=== PATIENT | female | born 1960 | race Caucasian/White ===

== ENCOUNTER 2024-04-13 09:03 | Emergency (ER) | payer MEDICAID, SELFPAY ==
[2024-04-13 09:15] VITALS: BP 145/92; PULSE 78; RESP 18; TEMP 36.9; O2SAT 97; BMI 54.1
--- NOTE | 2024-04-13 09:17 | XR_ITS ---
Examination: Duplex scan of the lower extremity, unilateral left Date and time of exam: April 13, 2024 0927 hours INDICATIONS: Left lower leg redness swelling and pain beginning 3 days ago Technique: Duplex scan of the extremity veins using B-mode/grayscale imaging and Doppler spectral analysis and color flow Attention is directed to internal echogenicity, compression and augmentation involving these veins, color flow assessment, spectral analysis Findings: Major deep venous structures in the extremity demonstrate normal course and caliber. There is no evidence of deep vein thrombosis. Normal color flow and spectral analysis Impression: Negative for DVT..
--- NOTE | 2024-04-13 09:19 | PD.EDLOWEX ---
Lower Extremity Injury RME/HPI General Chief Complaint: Extremity Injury, Lower Stated Complaint: Left leg redness, swelling Time Seen by Provider: 04/13/24 09:17 Source: patient Arrival date/time: 04/13/24 09:03 63-year-old female with a history of type 2 diabetes, hypertension, neuropathy, presents to the emergency room with a chief complaint of left leg and calf redness, swelling, and tenderness x 2 days Mode of arrival: ambulatory Limitations: no limitations Related Data Home Medications ?Medication ?Instructions ?Recorded ?Confirmed atenolol 50 mg tablet (Tenormin) 50 mg PO QAM #0 tabs 06/18/13 potassium chloride 8 mEq 8 meq PO AM ##0 06/18/13 capsule,extended release amlodipine 10 mg tablet (Norvasc) 10 mg PO NOON #0 tabs 08/20/13 furosemide 40 mg tablet 40 mg PO QAM ##0 08/20/13 gabapentin 300 mg capsule 300 mg PO BID #0 caps 08/20/13 lisinopril 20 mg tablet 20 mg PO HS #0 tabs 08/20/13 Cyclobenzaprine * (FLEXERIL *) 10 mg PO HS PRN PAIN #0 tabs 06/24/14 albuterol sulfate 2.5 mg/3 mL 2.5 mg HHN QDAY #0 ea 06/24/14 (0.083 %) solution for nebulization albuterol sulfate 90 mcg/actuation 2 puff inhalation BID ##0 06/24/14 aerosol inhaler (ProAir HFA) beclomethasone dipropionate 40 1 puff inhalation QDAY ##0 06/24/14 mcg/actuation aerosol inhaler (Qvar) glyburide 5 mg tablet 5 mg PO BIDAC #0 tabs 06/24/14 ibuprofen 800 mg tablet 800 mg PO Q8HR PRN PAIN #0 tabs 06/24/14 pregabalin 50 mg capsule (Lyrica) 50 mg PO NOON #0 caps 06/24/14 Venlafaxine * (EFFEXOR *) 37.5 mg PO QAMAC #0 tabs 12/10/14 gemfibrozil 600 mg tablet (Lopid) 600 mg PO BIDWM #0 tabs 12/10/14 sitagliptin phosphate 100 mg 100 mg PO HS #0 tabs 12/10/14 tablet (Januvia) Previous Rx's ?Medication ?Instructions ?Recorded azithromycin 250 mg tablet See Rx Instructions PO .COMPLEX #6 10/20/23 (Zithromax Z-Praneeth) tabs cephalexin 500 mg capsule 500 mg PO TID #21 caps 11/17/23 insulin glargine 100 unit/mL (3 55 unit (0.55 mL) subcut QAM #15 mL 11/17/23 mL) subcutaneous pen (Basaglar KwikPen U-100 Insulin) cephalexin 500 mg capsule 500 mg PO BID 7 days #14 caps 04/13/24 Allergies Allergy/AdvReac Type Severity Reaction Status Date / Time codeine Allergy Mild Rash Unverified 10/20/23 14:41 oxycodone Allergy Mild Rash Unverified 10/20/23 14:41 sulfamethoxazole (From Allergy Verified 04/13/24 09:09 Bactrim) trimethoprim (From Bactrim) Allergy Verified 04/13/24 09:09 Review of Systems Review of Systems Systems Reviewed: All systems reviewed, normal except as documented Constitutional Constitutional: Reports system reviewed and no additional complaints, except as documented, Denies fatigue, Denies fever(s), Denies headache(s) and Denies weakness Eyes Eyes: Reports system reviewed and no additional complaints, except as documented, Denies blurry vision and Denies change in vision ENT Ears, Nose, Mouth, and Throat: Reports system reviewed and no additional complaints, except as documented, Denies otalgia, Denies headache(s), Denies nasal congestion, Denies throat swelling and Denies vertigo Cardiovascular Cardiovascular: Reports system reviewed and no additional complaints, except as documented, Denies chest pain, Denies dyspnea and Denies dyspnea on exertion Respiratory Respiratory: Reports system reviewed and no additional complaints, except as documented, Denies chest congestion, Denies cough, Denies dyspnea, Denies dyspnea on exertion and Denies wheezing Gastrointestinal Gastrointestinal: Reports system reviewed and no additional complaints, except as documented, Denies abdominal pain, Denies cramping, Denies nausea and Denies vomiting Genitourinary Genitourinary: Reports system reviewed and no additional complaints, except as documented Musculoskeletal Musculoskeletal: Reports system reviewed and no additional complaints, except as documented and Denies back pain Integumentary/Breasts Skin/Breast: Reports system reviewed and no additional complaints, except as documented, Reports dry skin, Reports erythema, Reports pruritus and Denies wounds Neurologic Neurologic: Reports system reviewed and no additional complaints, except as documented, Denies confusion, Denies headache(s), Denies lack of coordination, Denies vertigo and Denies weakness Psychiatric Psychiatric: Reports system reviewed and no additional complaints, except as documented, Denies anxiety, Denies confusion, Denies depression, Denies paranoia, Denies suicidal ideation and Denies tactile hallucinations Endocrine Endocrine: Reports system reviewed and no additional complaints, except as documented and Denies fatigue Hematologic/Lymphatic Hematologic/Lymphatic: Reports system reviewed and no additional complaints, except as documented and Denies lymphadenopathy Allergic/Immunologic Allergic/Immunologic: Reports system reviewed and no additional complaints, except as documented, Denies throat swelling, Denies urticaria and Denies wheezing ED Exam General Limitations: Present no limitations General appearance: Present alert and in no apparent distress Head Head exam: Present atraumatic Eye Eye exam: Present normal appearance, PERRL and EOMI ENT ENT exam: Present normal exam, normal oropharynx and mucous membranes moist Neck Neck exam: Present normal inspection, full ROM and trachea midline Chest Chest inspection: Present normal inspection and symmetric chest wall rise Respiratory Respiratory exam: Present normal lung sounds bilaterally Cardiovascular Cardiovascular exam: Present regular rate, normal rhythm and normal heart sounds Abdominal Exam Abdominal exam: Present soft and normal bowel sounds Extremities Exam Extremities exam: Present normal inspection and full ROM Expanded Lower Extremity Exam Hip/Pelvis exam: Present normal inspection Upper leg exam: Present normal inspection Knee exam: Present normal inspection Lower leg exam: Present full ROM, tenderness, swelling, erythema and Homans' sign Foot/toe exam: Present normal inspection Neurovascular/Tendon exam: Present normal capillary refill and pallor Gait: observed and limited by pain Back Exam Back exam: Present normal inspection and full ROM Neurological Exam Neurological exam: Present alert, oriented X3 and CN II-XII intact Psychiatric Psychiatric exam: Present normal affect and normal mood Skin Skin exam: Present warm, dry, intact and normal color Course Quality Measures none Orders Category Date Time Status US venous doppler LE LT Stat Exams 04/13/24 09:17 Completed CBC [CBC] Stat Lab 04/13/24 09:55 Completed CMP [Comprehensive Metabolic Panel] Stat Lab 04/13/24 09:55 Completed Vital Signs Vital signs: Vital Signs Temperature 98.5 F 04/13/24 09:15 Pulse Rate 78 04/13/24 09:15 Respiratory Rate 18 04/13/24 09:15 Blood Pressure 145/92 H 04/13/24 09:15 Pulse Oximetry (%) 97 04/13/24 09:15 Oxygen Delivery Method Room Air 04/13/24 09:15 O2 saturation 97% within normal limits Extremity Injury, Lower MDM Narrative MDM Narrative:: 63-year-old female with a history of type 2 diabetes, hypertension, neuropathy, presents to the emergency room with a chief complaint of left leg and calf redness, swelling, and tenderness x 2 days The patient is hemodynamically stable and in no apparent distress. Physical examination shows swelling, tenderness, and erythema to the left lower extremity. The patient has a positive Homans' sign and states it is very tender to the touch. There is no drainage, eschar, and the findings are consistent with uncomplicated cellulitis. Ultrasound Doppler was completed and was negative for any DVT Antibiotics are sent to the patient's pharmacy patient was discharged and educated to follow-up with primary care provider and return to the emergency room for any evidence of worsening signs or symptoms Patient data External records reviewed:: [facility] previous records Clinical information provided by:: patient Social determinants that could affect healthcare access:: none Patient has the following chronic illnesses:: Type 2 diabetes, obesity, hyperlipidemia, hyperglycemia How is presenting disease/condition affected by chronic disease/condition?: exacerbated by Evaluation data The following diagnostics were reviewed and interpreted by me:: lab results and radiology exam(s) Lab and/or radiology exams considered but not ordered:: Labs and radiology exams considered and ordered Interpretation Summary: Ultrasound Doppler of the left lower extremity-Findings: Major deep venous structures in the extremity demonstrate normal course and caliber. There is no evidence of deep vein thrombosis. Normal color flow and spectral analysis Impression: Negative for DVT.. Medications / Prescriptions Medications or Prescriptions considered but not ordered:: Rx given Medication administrations:: Rx given Consultations Consultation(s) initiated? (list below): No Diagnosis Extremity Injury, Lower Differential Diagnosis: other (DVT/cellulitis) Most likely diagnosis given after review of the tests above:: Cellulitis Admission Indicated Admission indicated?: not indicated Admission Request Was there a request for admission?: No Disposition Plan Disposition Plan: Discharge Discharge Attestation Discharge Attestation: The patient and all family members were given an opportunity to ask questions and understood the discharge instructions. Discharge instructions specifically effects, indications for sooner follow up or return to the emergency department, and the expected course of current diagnosis. Patient condition: Stable Discharge Plan Plan Patient Disposition: HOME (Self Care) Disposition Comment: Stable Prescriptions/Referrals Prescriptions/Med Rec: New cephalexin 500 mg capsule 500 mg PO BID 7 Days Qty: 14 0RF No Action potassium chloride 8 MEQ capsule, extended release 8 meq PO AM Qty: 0 atenolol [Tenormin] 50 MG tablet 50 mg PO QAM Qty: 0 furosemide 40 MG tablet 40 mg PO QAM Qty: 0 lisinopril 20 MG tablet 20 mg PO HS Qty: 0 amlodipine [Norvasc] 10 MG tablet 10 mg PO NOON Qty: 0 gabapentin 300 MG capsule 300 mg PO BID Qty: 0 albuterol sulfate 2.5 MG/3 ML solution for nebulization 2.5 mg HHN QDAY Qty: 0 glyburide 5 MG tablet 5 mg PO BIDAC Qty: 0 ibuprofen 800 MG tablet 800 mg PO Q8HR PRN (Reason: PAIN) Qty: 0 albuterol sulfate [ProAir HFA] 8.5 GM HFA aerosol inhaler 2 puff Inhalation BID Qty: 0 beclomethasone dipropionate [Qvar] 7.3 GM aerosol 1 puff Inhalation QDAY Qty: 0 pregabalin [Lyrica] 50 MG capsule 50 mg PO NOON Qty: 0 Cyclobenzaprine * (FLEXERIL *) 10 MG tablet 10 mg PO HS PRN (Reason: PAIN) Qty: 0 gemfibrozil [Lopid] 600 MG tablet 600 mg PO BIDWM Qty: 0 sitagliptin phosphate [Januvia] 100 MG tablet 100 mg PO HS Qty: 0 Venlafaxine * (EFFEXOR *) 37.5 MG tablet 37.5 mg PO QAMAC Qty: 0 azithromycin [Zithromax Z-Praneeth] 250 mg tablet See Rx Instructions .ROUTE .COMPLEX Qty: 6 0RF Rx Instructions: For 250 mg dose pack: take 500 mg today (day 1), then 250 mg for 4 days (days 2-5) cephalexin 500 mg capsule 500 mg PO TID Qty: 21 0RF insulin glargine [Basaglar KwikPen U-100 Insulin] 100 unit/mL (3 mL) insulin pen 55 unit subcut QAM Qty: 15 0RF Referrals: Mala Clements PA-C [Primary Care Provider] - In 1 week Problem List Clinical Impression: Cellulitis of lower leg Patient/Caregiver Discharge Instructions Education Materials: Discharge Instructions for Cellulitis, ED Cellulitis Additional Instructions: Please follow-up with your primary care provider in the next 24 to 48 hours. The ultrasound was completed and there was no blood clot. Antibiotics are sent to your pharmacy to help you with the cellulitis in your lower leg. Please waste picker your antibiotics and take them as indicated. For any evidence of worsening signs or symptoms please return to the emergency room immediately Print Language: Spanish Stand Alone Forms: [employer]uly Award Info., Patient Portal Info Letter PA/DEONTE Supervising Physician PA/DEONTE Supervising Physician: Dr. Cardona
[2024-04-13 10:05] LABS: Basophils % (Auto) 0 % (0-2.5); Eosinophils # (Auto) 0.1 Thou/mm3 (0.0-0.5); Eosinophils % (Auto) 1 % (0-10); Hematocrit 37.9 % (36.0-46.0); Hemoglobin 13.1 g/dL (12.0-16.0); Immature Granulocytes % (Auto) 0 % (0-0); Immature Granulocytes Auto 0.03 Thou/mm3 (0.00-0.00); Lymphocytes # (Auto) 1.6 Thou/mm3 (1.0-4.8); Lymphocytes % (Auto) 17 % (10-50); Mean Corpuscular HGB Conc 34.6 g/dl (31.0-37.0); Mean Corpuscular Hemoglobin 30.3 pg (25.0-35.0); Mean Corpuscular Volume 88 fL (80-100); Monocytes % (Auto) 11 % (0-12); Neutrophils # (Auto) 6.7 Thou/mm3 (1.8-7.7); Neutrophils % (Auto) 71 % (37-80); Nucleated Red Blood Cell % 0 /100 WBC (0); Platelet Count 176 Thou/mm3 (140-440); RDW Standard Deviation 40.9 fL (36.4-46.3); Red Blood Count 4.32 Miln/mm3 (4.00-5.20); White Blood Count 9.4 Thou/mm3 (3.6-11.0)
[2024-04-13 10:22] LABS: Alanine Aminotransferase 11 U/L (10-49); Albumin, Serum 4.2 gm/dL (3.4-4.8); Albumin/Globulin Ratio 1.8 (1.2-2.2); Alkaline Phosphatase 116 U/L (46-116); Anion Gap 9 (7-16); Aspartate Amino Transferase 12 U/L (0-34); BUN/Creatinine Ratio 19 Ratio (12-20); Bilirubin,Total 0.7 mg/dL (0.3-1.2); Blood Urea Nitrogen 21 mg/dL (9-23); Calcium 9.3 mg/dL (8.3-10.6); Calcium (Corrected) 9.3 mg/dL (8.5-10.1); Carbon Dioxide 22.5 mMol/L (20.0-31.0); Chloride 110 mMol/L (98-107); Creatinine (Component) 1.1 mg/dL (0.6-1.3); Estimated Creatinine Clearance 71.9 mL/min (>60); Globulin 2.4 gm/dL (2.3-3.5); Glucose 205 mg/dL (74-106); Osmolality,Calculated 290 (275-295); Potassium 4.1 mMol/L (3.4-5.1); Sodium 141 mMol/L (136-145); Total Protein 6.6 gm/dL (5.7-8.2); eGFR 56 See Note
== END 2024-04-13 10:37 | disposition home or self-care (01) ==
PROVIDERS: Nurse Practitioner Family; Emergency Provider Emergency Medicine; PCP Physician Assistant
DX: L03.116 Cellulitis of left lower limb (principal); I10 Essential (primary) hypertension; E11.40 Type 2 diabetes mellitus with diabetic neuropathy, unspecified
CPT/HCPCS: 36415; 80053; 85025; 93971; 99284

== ENCOUNTER → 2024-04-24 | Outpatient (CLI) | payer MEDICAID, SELFPAY ==
--- NOTE | 2024-04-24 14:34 | XR_ITS ---
Examination: CT chest, without intravenous contrast. Sagittal and coronal 2-D reconstructions. Exam date and time: April 24, 2024 1451 hours INDICATIONS: Smoking history, history 21 mm noncalcified pulmonary nodule right upper lobe on CT chest study 2014 CTDI:vol (mGy) 22.8 DLP: (mGycm) 810 Technique: Multiple 3.0 mm axial sections of the chest to been obtained. Bone and lung density settings are obtained. Sagittal and coronal 2-D reconstructions have been obtained. Low dose protocols were performed. One or more of the following dose reduction techniques were used; automated exposure control, adjustment of the mA and/or KV according to patient size, use of iterative reconstruction technique. Findings: No thoracic aortic aneurysm dilatation Pulmonary artery segments are not enlarged Small pericardial effusion No paratracheal tracheobronchial or bronchopulmonary adenopathy 10 mm pulmonary nodule with calcification in the right upper lobe No new pulmonary nodules No pneumonia or pulmonary edema Small benign liver cyst No biliary tract dilatation No pancreatic mass IMPRESSION: Stable 10 mm pulmonary nodule with calcification in the right upper lobe
== END | disposition home or self-care (01) ==
LOC: CCTX 14:23
PROVIDERS: PCP Physician Assistant; Referring Provider Physician Assistant; Visit Provider Physician Assistant
DX: R91.1 Solitary pulmonary nodule (principal); J98.4 Other disorders of lung
CPT/HCPCS: 71250

== ENCOUNTER → 2024-10-15 | Outpatient (CLI) | payer MEDICAID, SELFPAY ==
--- NOTE | 2024-10-15 | XR_ITS ---
Examination: CT chest, without intravenous contrast. Sagittal and coronal 2-D reconstructions. Exam date and time: October 15, 2024 1313 hours Comparison April 24, 2024 INDICATIONS: 10 mm nodule right upper lobe on CT chest April 24, 2024 CTDI:vol (mGy) 23 DLP: (mGycm) 849 Technique: Multiple 3.0 mm axial sections of the chest to been obtained. Bone and lung density settings are obtained. Sagittal and coronal 2-D reconstructions have been obtained. Low dose protocols were performed. One or more of the following dose reduction techniques were used; automated exposure control, adjustment of the mA and/or KV according to patient size, use of iterative reconstruction technique. Findings: No thoracic aortic aneurysm dilatation Pulmonary artery segments are not enlarged Pericardial effusion 9 mm No paratracheal tracheobronchial or bronchopulmonary adenopathy Pulmonary nodule right lower lobe measures 12 mm on the current study Small liver cyst No pancreatic mass IMPRESSION: Pulmonary nodule right lower lobe measures 12 mm on the current study, suggest continued 6 month follow-up CT chest study
== END | disposition home or self-care (01) ==
LOC: CCTX 13:03
PROVIDERS: PCP Physician Assistant; Referring Provider Internal Medicine Critical Care Medicine; Visit Provider Internal Medicine Critical Care Medicine
DX: J44.9 Chronic obstructive pulmonary disease, unspecified (principal); R91.1 Solitary pulmonary nodule
CPT/HCPCS: 71250

== ENCOUNTER → 2024-11-15 | Outpatient (CLI) | payer MEDICAID, SELFPAY ==
--- NOTE | 2024-11-15 12:00 | XR_ITS ---
Examination: Carotid arterial duplex scan, ultrasound. Date and time of exam: November 15, 2024 1139 hours INDICATIONS: Dizziness episodes loss of balance episodes one year Technique: Multiple sonographic images have been obtained of the carotid arteries and vertebral arteries, B-mode/grayscale imaging and Doppler spectral analysis and color flow Peak systolic and diastolic velocities have been recorded. Systolic diastolic ratios have been calculated. Findings: Right peak systolic velocities: Distal internal carotid artery peak systolic velocity is 0.7 M/sec Proximal internal carotid artery peak systolic velocity is 0.5 M/sec Carotid bifurcation peak systolic velocity is 0.9 M/sec External carotid artery peak systolic velocity is 0.9 M/sec Vertebral artery flow is antegrade. Left peak systolic velocities: Distal internal carotid artery peak systolic velocity is 0.6 M/sec Proximal internal carotid artery peak systolic velocity is 0.7 M/sec Carotid bifurcation peak systolic velocity is 0.6 M/sec External carotid artery peak systolic velocity is 1.2 M/sec Vertebral artery flow is antegrade Doppler waveform analysis demonstrates no spectral broadening Impression: Right internal carotid artery demonstrates 0-10% stenosis. Left internal carotid artery demonstrates 0-10% stenosis.
== END | disposition home or self-care (01) ==
PROVIDERS: PCP Physician Assistant; Referring Provider Physician Assistant; Visit Provider Physician Assistant
DX: R42 Dizziness and giddiness (principal)
CPT/HCPCS: 93880